=== PATIENT | female | born 1960 | race Caucasian/White ===

== ENCOUNTER 2018-09-15 19:18 | Emergency (ER) | payer MEDICARE, MEDICAID ==
[~2018-09-15] VITALS: Ht 170.2 cm; Wt 97.5 kg
[~2018-09-15 19:18] MED LIST: ABILIFY15 M1 PO; ASPIRIN81 MG PO; ATIVAN0.5 M1 PO; LEXAPRO20 MG PO; METFORMIN HCL500 MG PO; METOPROLOL TART25 M1 PO; NEU300 PO; OMEPRAZOLE DR20 M1 PO; SIMVASTATIN10 M1 PO
[2018-09-15 19:51] VITALS: Ht 170.2 cm; Wt 97.5 kg
[2018-09-15 20:36] LABS: BASOPHIL % 0.3 % (0-2); PLATELET COUNT 207 x10^3mcL (130-400); RED CELL DISTRIBUTION WIDTH 13.6 % (11.5-14.5)
[2018-09-15 20:50] LABS: CALCIUM 9.9 mg/dL (8.5-10.1); CARBON DIOXIDE 25.7 mmol/L (21-32); CREATININE SERUM 1.1 mg/dL (0.6-1.0); POTASSIUM SERUM 3.4 mmol/L (3.5-5.1)
[2018-09-15 20:54] LABS: BILIRUBIN TOTAL 2.2 mg/dL (0.20-1.00); TOTAL PROTEIN, SERUM 8.5 g/dL (6.4-8.2)
[2018-09-15 23:49] VITALS: BP 133/79
== END 2018-09-15 23:49 | disposition home or self-care (01) ==
LOC: ED 19:18
PROVIDERS: Emergency Medicine
DX: N39.0 Urinary tract infection, site not specified (principal); S39.012A Strain of muscle, fascia and tendon of lower back, initial encounter; F41.9 Anxiety disorder, unspecified; E11.40 Type 2 diabetes mellitus with diabetic neuropathy, unspecified; X50.0XXA Overexertion from strenuous movement or load, initial encounter; X50.9XXA Other and unspecified overexertion or strenuous movements or postures, initial encounter; Y93.89 Activity, other specified; Y92.89 Other specified places as the place of occurrence of the external cause; Y99.8 Other external cause status
CPT/HCPCS: 36415; J0696; J1885

== ENCOUNTER 2018-12-01 09:21 | Inpatient (IN) | payer MEDICARE, MEDICAID ==
[~2018-12-01] VITALS: Ht 170.2 cm; Wt 96.4 kg
[2018-12-01 09:27] VITALS: Ht 170.2 cm; Wt 96.4 kg
[2018-12-01 10:53] LABS: BASOPHIL % 0.2 % (0-2); PLATELET COUNT 150 x10^3mcL (130-400); RED CELL DISTRIBUTION WIDTH 13.4 % (11.5-14.5)
[2018-12-01 11:05] LABS: CALCIUM 9.6 mg/dL (8.5-10.1); CARBON DIOXIDE 23.1 mmol/L (21-32); CHLORIDE SERUM 103 mmol/L (98-107); CREATININE SERUM 0.9 mg/dL (0.6-1.0); GFR1 > 60 mL/min; GLUCOSE SERUM 124 mg/dL (74-106); POTASSIUM SERUM 4.3 mmol/L (3.5-5.1); SODIUM SERUM 141 mmol/L (136-145)
[2018-12-01 11:10] LABS: ALBUMIN 3.4 g/dL (3.4-5.0); ALKALINE PHOSPHATASE 101 U/L (46-116); ALT/SGPT 21 U/L (14-59); AST/SGOT 17 U/L (15-37); BILIRUBIN TOTAL 2.93 mg/dL (0.20-1.00); LIPASE 56 IU/L (73-393); TOTAL PROTEIN, SERUM 7.8 g/dL (6.4-8.2)
[2018-12-01] MEDS ORDERED: NEURONTIN400 MG PO (13:26)
[2018-12-01] MEDS ORDERED: ESCITALOPRAM20 M1 PO (13:26)
[2018-12-01] MEDS ORDERED: LIPI10 PO (13:26)
[2018-12-01] MEDS ORDERED: GOOD NEIGHBOR P20 M2 PO (13:27)
[2018-12-01] MEDS ORDERED: METFORMIN500 M1 PO (13:28)
[2018-12-01] MEDS ORDERED: IMITREX100 MG PO (13:29)
[2018-12-01] MEDS ORDERED: APAP/OXYCODONE1 TA3 PO (13:29)
[2018-12-01] MEDS ORDERED: BANOPHEN25 MG PO (13:29)
[2018-12-01] MEDS ORDERED: JARDIANCE25 MG PO (13:30)
[2018-12-01 16:18] VITALS: BP 131/86
[2018-12-01 16:59] LABS: MAGNESIUM 1.6 mg/dL (1.8-2.4); PHOSPHOROUS 2.5 mg/dL (2.5-4.9)
[2018-12-01 21:02] VITALS: BP 125/64
[2018-12-02 05:38] VITALS: BP 123/61
[2018-12-02 05:40] LABS: BASOPHIL % 0.2 % (0-2); RED CELL DISTRIBUTION WIDTH 13.6 % (11.5-14.5)
[2018-12-02 05:50] LABS: CALCIUM 8.6 mg/dL (8.5-10.1); CARBON DIOXIDE 22.6 mmol/L (21-32); CHLORIDE SERUM 108 mmol/L (98-107); CREATININE SERUM 0.7 mg/dL (0.6-1.0); GFR1 > 60 mL/min; GLUCOSE SERUM 106 mg/dL (74-106); MAGNESIUM 1.8 mg/dL (1.8-2.4); PHOSPHOROUS 2.4 mg/dL (2.5-4.9); SODIUM SERUM 142 mmol/L (136-145)
[2018-12-02 05:56] LABS: CHOLESTEROL/HDL RATIO 3.6
[2018-12-02 07:00] LABS: PLATELET COUNT 123 x10^3mcL (130-400)
[2018-12-02 08:54] LABS: microscopic required? YES; urine erythrocyte 1+ (NEGATIVE)
[2018-12-02 09:21] LABS: AMPHETAMINE QUAL UR NONE DETECTED (See below)
[2018-12-02 09:23] VITALS: BP 145/77
[2018-12-02 16:36] VITALS: BP 116/52
[2018-12-02 20:30] VITALS: BP 115/50
[2018-12-03 05:55] VITALS: BP 108/51
[2018-12-03 07:06] LABS: BASOPHIL % 0.3 % (0-2); CALCIUM 8.1 mg/dL (8.5-10.1); CARBON DIOXIDE 24.6 mmol/L (21-32); CHLORIDE SERUM 109 mmol/L (98-107); CREATININE SERUM 0.7 mg/dL (0.6-1.0); GFR1 > 60 mL/min; GLUCOSE SERUM 133 mg/dL (74-106); POTASSIUM SERUM 3.4 mmol/L (3.5-5.1); RED CELL DISTRIBUTION WIDTH 13.8 % (11.5-14.5); SODIUM SERUM 141 mmol/L (136-145)
[2018-12-03 07:16] LABS: PLATELET COUNT 109 x10^3mcL (130-400)
[2018-12-03 08:52] VITALS: BP 111/52
[2018-12-03 16:07] VITALS: BP 126/90
[2018-12-03 20:25] VITALS: BP 119/59
[2018-12-04 06:10] VITALS: BP 148/62
[2018-12-04 08:32] LABS: BASOPHIL % 0.2 % (0-2); PLATELET COUNT 141 x10^3mcL (130-400); RED CELL DISTRIBUTION WIDTH 13.7 % (11.5-14.5)
[2018-12-04 09:49] VITALS: BP 123/58
[2018-12-04 16:38] VITALS: BP 130/60
[2018-12-04 20:50] VITALS: BP 140/66
[2018-12-05 05:45] VITALS: BP 147/77
[2018-12-05 10:31] VITALS: BP 116/68
[2018-12-05 17:54] VITALS: BP 151/68
[2018-12-05 19:29] VITALS: BP 135/54
[2018-12-06 05:07] VITALS: BP 150/69
[2018-12-06 06:33] LABS: CALCIUM 8.4 mg/dL (8.5-10.1); CARBON DIOXIDE 32.3 mmol/L (21-32); CHLORIDE SERUM 107 mmol/L (98-107); CREATININE SERUM 0.7 mg/dL (0.6-1.0); GFR1 > 60 mL/min; GLUCOSE SERUM 108 mg/dL (74-106); POTASSIUM SERUM 3.4 mmol/L (3.5-5.1); SODIUM SERUM 144 mmol/L (136-145)
[2018-12-06 06:46] LABS: BASOPHIL % 0.3 % (0-2); PLATELET COUNT 183 x10^3mcL (130-400); RED CELL DISTRIBUTION WIDTH 13.3 % (11.5-14.5)
[2018-12-06 08:52] VITALS: BP 144/61
[2018-12-06 11:20] VITALS: BP 144/61
== END 2018-12-06 13:11 | disposition home or self-care (01) | DRG 690 ==
LOC: ED 09:21 → MU 15:11
PROVIDERS: Emergency Medicine; Family Medicine; ADMIT Internal Medicine
DX: N10 Acute pyelonephritis (principal); J98.11 Atelectasis; D68.69 Other thrombophilia; E11.42 Type 2 diabetes mellitus with diabetic polyneuropathy; E11.65 Type 2 diabetes mellitus with hyperglycemia; K21.9 Gastro-esophageal reflux disease without esophagitis; K75.9 Inflammatory liver disease, unspecified; I25.10 Atherosclerotic heart disease of native coronary artery without angina pectoris; E83.42 Hypomagnesemia; M47.896 Other spondylosis, lumbar region; D69.59 Other secondary thrombocytopenia; R19.7 Diarrhea, unspecified; F41.9 Anxiety disorder, unspecified; I25.2 Old myocardial infarction; Z87.442 Personal history of urinary calculi; Z79.82 Long term (current) use of aspirin; Z68.32 Body mass index [BMI] 32.0-32.9, adult; Z79.84 Long term (current) use of oral hypoglycemic drugs
CPT/HCPCS: 82962; 87046; 87046-59; 94150; J0696; J1885; J2270; J2405; J3490; J7030; Q0092; Q0163; Q9967